=== PATIENT | female | born 1960 | race American Indian/Alaskan Native ===

== ENCOUNTER 2018-03-04 10:33 | Day surgery (SDC) | payer OTHER ==
[2018-03-04] MEDS ORDERED: NACL 0.9% 1000 ML 1,000 ML IV SCH (11:00)
[2018-03-04] MEDS ORDERED: WATER FOR IRRIG STERILE IR ONE (11:25)
[2018-03-04] MEDS ORDERED: XYLOCAINE MPF 2% ONE (11:30)
[2018-03-04] MEDS ORDERED: DIPRIVAN 10 MG/ML IV ONE ×2 (13:02)
--- NOTE | 2018-03-04 13:02 | Anesthesia Day of Surgery ---
Anesthesia Day of Surgery - Day of Surgery Patient Examined: Yes Patient H&P Reviewed: Yes Patient is NPO: Yes
--- NOTE | 2018-03-04 13:02 | Anesthesia Consultation ---
Anesthesia Consult and Med Hx Date of service: 03/04/18 - Airway Anesthetic Teeth Evaluation: Poor, Chipped ROM Head & Neck: Adequate Mental/Hyoid Distance: Adequate Mallampati Class: Class III Intubation Access Assessment: Possibly Difficult - Pulmonary Exam CTA: Yes - Cardiac Exam Cardiac Exam: RRR - Pre-Operative Health Status ASA Pre-Surgery Classification: ASA3 Proposed Anesthetic Plan: MAC - Cardiovascular System Hx Hypertension: Yes - Other Systems Hx Obesity: Yes (MORBID)
--- NOTE | 2018-03-04 13:33 | Operative Report ---
Operative Report Operative Report: Date of procedure: 03/04/2018 Procedure: Colonoscopy with Multiple Polyp ablations and Hot Biopsy Polypectomy. Attending physician: Steve Yang MD Research Clerk: Steve Yang MD Indication: Patient is a 58-year-old female who presents for screening colonoscopy. This colonoscopy serves to evaluate patient so that treatment may be directed based on the findings. Consent: Informed consent was obtained after advising the patient and family regarding nature of this procedure, its indications, potential benefits as well as possible complications including but not limited to bleeding perforation and adverse reaction to medication, infection as well as other cardiopulmonary complications. An informed written and verbal consent was then obtained after due opportunity was provided for questions and answers. Monitoring: Patient was monitored continuously with pulse oximetry and electrocardiographic recordings as well as blood pressure recordings. Vital signs remained stable throughout this procedure with no untoward events. Preoperative assessment: Patient was assessed immediately prior to this procedure for capacity to tolerate monitored anesthesia care and moderate sedation as well as general anesthesia. Patient's ASA classification is 2, Mallampati class is 2, Hyomental distance is 3. Instrument: Volusionn video colonoscope Medications: Propofol given intravenously in divided doses. For details please refer to anesthesia records. Description of procedure: Patient was placed in the left lateral decubitus position after achieving sedation, a digital rectal examination was performed following which the colonoscope was introduced into the anal verge and advanced to the cecum which was identified by the cecal valve, the appendiceal orifice, as well as by the cecal strap and direct transillumination. The colonoscope was subsequently withdrawn with careful inspection of all mucosal surfaces. Patient tolerated this procedure well and was subsequently taken to the recovery room. The following findings were noted. Findings: Patient had multiple diminutive flat polyps in the rectum measuring about 3-4 mm. About 7 of these polyps were ablated. There was also a few diminutive sessile polyp in the sigmoid colon which measured 5-6 mm. The polyps was ablated removed by hot biopsy polypectomy. There were scattered diverticula in the sigmoid colon and also in the descending colon. Patient had substantial retained stool in various sections of the colon. The rest of the colon to the cecum was normal. On the retroflex view at the anal verge, patient had internal hemorrhoids. Impression: Multiple diminutive rectal polyps status post polyp ablation. Sigmoid colon polyp status post hot biopsy polypectomy. Retained stool. Diverticula disease of the colon. Internal hemorrhoids. Plan: Follow pathology report. High-fiber diet. Repeat colonoscopy in 1 year due to the relatively poor colonoscopic preparation and presence of multiple polyps.
--- NOTE | 2018-03-04 13:34 | Discharge Summary ---
Short Stay Discharge Plan Activity: advance as tolerated Weight Bearing Status: Weight Bear as Tolerated Diet: regular
[2018-03-04 14:13] VITALS: BP 146/82
== END 2018-03-04 14:14 | disposition home or self-care (01) ==
LOC: GIO 10:33
PROVIDERS: ATTEND Internal Medicine Gastroenterology
DX: Z09 Encounter for follow-up examination after completed treatment for conditions other than malignant neoplasm (principal); K63.5 Polyp of colon; K59.00 Constipation, unspecified; K57.30 Diverticulosis of large intestine without perforation or abscess without bleeding; K64.8 Other hemorrhoids; I10 Essential (primary) hypertension; E66.01 Morbid (severe) obesity due to excess calories; Z86.010 Personal history of colon polyps; Z68.42 Body mass index [BMI] 45.0-49.9, adult; Z90.710 Acquired absence of both cervix and uterus; Z98.890 Other specified postprocedural states
CPT/HCPCS: 45384; 45388; 88305; J2704; J7030

== ENCOUNTER 2020-09-21 09:15 | Outpatient (CLI) | payer OTHER ==
--- NOTE | 2020-09-21 10:22 | Mammography Report ---
DIGITAL DIAGNOSTIC MAMMOGRAM WITH CAD CONVENTIONAL, 09/21/2020 CLINICAL INFORMATION / INDICATION: Status post biopsy of right breast mass. TECHNIQUE: Digital right mammographic imaging was performed. This examination was interpreted with the benefit of Computer-aided Detection analysis. COMPARISON: 08/21/2020, 08/02/2020 FINDINGS: Breast Density: There are scattered areas of fibroglandular density. The previously seen upper outer posterior depth right breast mass is unchanged with expected interval postbiopsy changes and concordant clip placement. Generalized benign right breast calcifications are unchanged. IMPRESSION: Expected postbiopsy appearance of the right breast. Please correlate with the pathology r eport. Follow up recommendation: Clinical exam Post biopsy imaging. A "normal" or negative report should not discourage follow up or biopsy of a clinically significant f inding. A written summary of these findings will be mailed to the patient. The patient will be entered into a mammography reporting system which will generate a reminder letter for the patient's next appointmen t at the appropriate interval. According to the [employer], yearly mammograms are recommended starting at age 40 and continuing as long as a woman is in good health. Breast MRI is recommended for women with an tay roximately 20-25% or greater lifetime risk of breast cancer, including women with a strong family his tory of breast or ovarian cancer and women who have been treated for Hodgkin's disease. Signer Name: Oli Tyler MD Signed: 09/21/2020 10:18 AM Workstation Name: [id number]
== END 2020-09-21 09:16 | disposition home or self-care (01) ==
LOC: SPVWC 09:15
PROVIDERS: ATTEND Surgery
DX: R92.1 Mammographic calcification found on diagnostic imaging of breast (principal); N63.10 Unspecified lump in the right breast, unspecified quadrant

== ENCOUNTER 2020-09-21 14:20 | Outpatient (CLI) | payer OTHER | END 2020-09-21 14:21 | disposition home or self-care (01) | LOC: LABHHL 14:20 | PROVIDERS: ATTEND Surgery | DX: N63.41 Unspecified lump in right breast, subareolar (principal) | CPT/HCPCS: 88305; 88341; 88342 ==

== ENCOUNTER 2020-10-31 12:47 | Outpatient (CLI) | payer OTHER ==
--- NOTE | 2020-10-31 16:04 | Magnetic Resonance Report ---
BILATERAL BREAST MRI WITH AND WITHOUT CONTRAST CLINICAL INFORMATION/INDICATION: Recent diagnosis of right breast carcinoma. TECHNICAL: Coronal STIR, axial T1 and T2-weighted fat sat images were obtained precontrast. Gadoliniu m-based contrast was injected intravenously and serial axial T1 weighted images with fat saturation w ere obtained. 3-D MIP projections, kinetic analysis and subtraction imaging was utilized to evaluate. A dedicated 8-channel breast coil was used for image acquisition. COMPARISON: Prior mammograms including 08/02/2020 and 09/21/2020 FINDINGS: Right breast: There is a 2.9 x 2.6 cm irregular partially enhancing mass in the upper outer quadrant of the right breast. This mass contains a biopsy clip confirming that this is the biopsy-proven neopl asm. This mass is approximately 10.5 cm from the nipple and approximately 4.3 cm from the chest wall, and 8 mm from the nearest skin surface laterally. Additionally, there are multiple small enhancing m asses anterior to the biopsy-proven cancer extending to within 2.5 cm from the nipple. The largest ma ss is approximately 8 mm with multiple 5 mm enhancing masses seen scattered throughout the same segme nt of breast that contains the biopsy-proven carcinoma. The entire area of suspected malignant involv ement is 12 cm in length, anterior to posterior. No abnormalities are seen in the medial half of the breast. Left breast: The left breast is unremarkable. No abnormal enhancement or suspicious findings are iden tified within the left breast. Additional findings: No abnormal lymph nodes are seen in either axilla or internal mammary chain. Loc alizing images demonstrate no obvious abnormality within the visualized portions of the liver or thor acic spine. IMPRESSION: 1. Biopsy-proven neoplasm is identified in the right breast at approximately 10:00. Additionally, the re are several enhancing masses seen throughout the same segment of breast as the carcinoma, extendin g anteriorly to within 2.5 cm of the nipple. The entire length of malignant involvement is suspected to be approximately 12 cm. 2. Normal MRI of the left breast. Follow up recommendation: Continued surgical consultation. BI-RADS Category 6: Known Biopsy-Proven Malignancy. Signer Name: Alma Rosa Lloyd MD Signed: 10/31/2020 3:59 PM Workstation Name: [id number]
== END 2020-10-31 12:48 | disposition home or self-care (01) ==
LOC: SPVIMAG 12:47
PROVIDERS: ATTEND Surgery
DX: C50.411 Malignant neoplasm of upper-outer quadrant of right female breast (principal)
CPT/HCPCS: A9577; C8908; 77049

== ENCOUNTER 2020-11-08 11:45 | Outpatient (CLI) | payer OTHER ==
--- NOTE | 2020-11-08 15:01 | PET Report ---
PET/CT HISTORY: C50.411. Initial staging of right breast cancer TECHNIQUE: The patient's fasting blood glucose was 144. The patient weighed 301 lbs. The patient w as injected with 13.5 mCi of FDG in the right antecubital fossa at 1247 hours and imaging was started at 1333 hours. The patient was imaged from the skull base to the thighs. All CT scans at this [facility] are performed using CT dose reduction for ALARA by means of automated exposure control. Images we re reviewed on a workstation. COMPARISON: None FINDINGS: IMAGED BRAIN: [Physiologic FDG uptake. NECK: Physiologic FDG uptake. CHEST WALL: An asymmetric density in the right lateral breast measures 3.5 x 2.4 cm and demonstrates a max SUV of 7.5.. MEDIASTINUM: Physiologic FDG uptake. LUNGS: Physiologic FDG uptake. No suspicious pulmonary nodule. HEPATOBILIARY: Physiologic FDG uptake. Mild hepatic steatosis is noted. No liver lesion is detected. PANCREAS: Physiologic FDG uptake. SPLEEN: Physiologic FDG uptake. KIDNEYS/BLADDER: Physiologic FDG uptake. ADRENAL GLANDS: Physiologic FDG uptake. GI/MESENTERY: Physiologic FDG uptake. PELVIC VISCERA: Physiologic FDG uptake. LYMPH NODES: There is a solitary mildly enlarged 1.3 cm right axillary lymph node which demonstrates a max SUV of 3.0.. OSSEOUS STRUCTURES: Physiologic FDG uptake. No suspicious bony lesions are detected. ADDITIONAL FINDINGS: None. IMPRESSION: Hypermetabolic right breast mass consistent with primary breast cancer. There is also a suspicious m ildly enlarged right axillary lymph node which also demonstrates mild hypermetabolic activity. Signer Name: Jeison Lombardi Jr, MD Signed: 11/08/2020 2:57 PM Workstation Name: [id number]
== END 2020-11-08 11:46 | disposition home or self-care (01) ==
LOC: PET 11:45
PROVIDERS: ATTEND Surgery
DX: C50.411 Malignant neoplasm of upper-outer quadrant of right female breast (principal); K76.0 Fatty (change of) liver, not elsewhere classified; R59.0 Localized enlarged lymph nodes
CPT/HCPCS: 78815; 82962; A9552

== ENCOUNTER 2020-11-27 12:41 | Outpatient (CLI) | payer OTHER ==
--- NOTE | 2020-11-27 13:49 | Ultrasound Report ---
ULTRASOUND BREAST RIGHT COMPLETE, 11/27/2020 CLINICAL INFORMATION / INDICATION: MALIGNANT NEOPLASM OF UPPER OUTER QUAD OF RT BREAST. TECHNIQUE: Complete sonographic evaluation of all 4 quadrants and retroareolar region was performed. COMPARISON: Right breast ultrasound 08/21/20. FINDINGS: There is a 2.9 cm irregular hypoechoic solid mass at the 9:30 position 12 cm from the nipple at the s ite of the patient's known biopsy-proven malignancy. A biopsy clip is present within the center of th e lesion. The mass measured approximately 2.2 cm previously. There is a 7.6 mm ovoid solid or complex cystic nodule at the 7:00 position 4 cm from the nipple. The re is an 8.1 mm irregular solid nodule at the 8:30 position 7 cm from the nipple which demonstrates i nternal vascularity on Doppler exam. There is a 6.2 mm solid nodule at the 9:00 position 7 cm from th e nipple, and a 5.9 mm solid nodule at the 9:30 position 5 cm from the nipple. Vague distortion and p osterior shadowing are present at the 12:00 position 4 cm from the nipple. There is a small lymph nod e in the right axilla with a thickened cortex (measuring 4.5 mm). IMPRESSION: Multifocal malignancy in the right breast. Follow up recommendation: Surgical consult BI-RADS Category 6: Known Biopsy-Proven Malignancy. A normal or "negative" report should not preclude biopsy or follow-up of a clinically suspicious find ing. Signer Name: Alcides Chase MD Signed: 11/27/2020 1:45 PM Workstation Name: [id number]
== END 2020-11-27 12:42 | disposition home or self-care (01) ==
LOC: SPVWC 12:41
PROVIDERS: ATTEND Surgery
DX: C50.411 Malignant neoplasm of upper-outer quadrant of right female breast (principal); N63.11 Unspecified lump in the right breast, upper outer quadrant; N63.13 Unspecified lump in the right breast, lower outer quadrant; R92.8 Other abnormal and inconclusive findings on diagnostic imaging of breast

== ENCOUNTER 2021-04-09 10:11 | Outpatient (CLI) | payer OTHER ==
--- NOTE | 2021-04-09 12:27 | Magnetic Resonance Report ---
Bilateral breast MR without and with contrast. History: Known right breast cancer, assess response to treatment. Comparison: 11/27/2020, 10/31/2020, 10/01/2020. Technique: Multiplanar multisequence MR images of the breast were obtained before and after the intra venous administration of 19 mL of Clariscan contrast agent. Post processing analysis and review was p erformed on a separate computer workstation. Findings: Breast composition is heterogeneously dense. There is minimal parenchymal enhancement within both reny asts. RIGHT BREAST: Patient has known biopsy-proven malignancy within the right upper outer breast with pre viously noted evidence of multifocal distribution. Compared to the prior MRI, there has been excellen t response to treatment. There is no residual abnormal mass or non-masslike enhancement within the ri ght breast. A biopsy marker within the right upper outer breast is noted at the site of prior biopsy. LEFT BREAST: Located within the left lower inner breast is a 1.3 x 0.6 x 0.6 cm complex cystic and so lid lesion. This is located 6 cm from the nipple and can best be seen on series 6, image 497. A port is noted within the posterior upper inner left breast. No abnormal axillary or internal mammary lymph nodes. Of note, patient has known biopsy-proven malign mary within a previously biopsied right axillary lymph node. Impression: Excellent response to treatment with no residual abnormal enhancement within the right breast at the site of previously identified multifocal breast malignancy within the right upper outer breast. Located within the left lower inner breast is a 1.3 cm complex cystic and solid lesion. A targeted ul trasound is recommended (focused at the 8:00 position, 6 cm from the nipple) with subsequent ultrasou nd-guided biopsy if a sonographic correlate is identified. If no sonographic correlate is identified, an MRI guided biopsy would be recommended. BIRADS 0: Incomplete--Needs Additional Imaging Evaluation. Signer Name: Keven Tinsley MD Signed: 04/09/2021 12:23 PM Workstation Name: [id number]
--- NOTE | 2021-04-09 13:34 | Ultrasound Report ---
RIGHT DIAGNOSTIC MAMMOGRAM AND BILATERAL TARGETED BREAST ULTRASOUND INDICATION: Known right breast malignancy, assess treatment response. Abnormality noted in the left b reast on recent MRI. COMPARISON: MRI performed earlier the same day, 11/27/2020, 09/21/2020. FINDINGS: Right breast CC and MLO projections were obtained. There are scattered fibroglandular densi ties. A biopsy marker in the right lateral posterior breast is noted. No persistent residual mass is identified. No new suspicious findings are seen. A targeted ultrasound focused in the right lateral breast shows a biopsy marker at the 9:30 position, 12 cm from the nipple, at site of known biopsy-proven malignancy. Comparison ultrasound showed multi ple findings concerning for the presence of multifocal malignancy, however these findings are not diego ntified on the current exam. No abnormal right axillary lymph nodes. A targeted ultrasound of the left medial breast shows a 7 x 6 x 8 mm solid microlobulated structure a t the 9:00 position, 6 cm from the nipple. This would correspond to a focal area of enhancement which was seen on the recent breast MRI. IMPRESSION: Excellent response to treatment with resolution of previously noted masses within the right breast at sites of prior suspected multifocal malignancy. No residual suspicious sonographic findings within t he right breast. A biopsy marker at the 9:30 position, 12 cm from the nipple, is again noted at site of prior biopsy. There is an 8 mm mass in the left breast at the 9:00 position, 6 cm from the nipple. This would corre spond with the focal area of enhancement seen on recent breast MRI. . If clinically indicated, this w ould be amenable to ultrasound-guided core biopsy. Patient states that she plans to undergo bilatera l mastectomies and biopsy of this would likely not change clinical management. These findings and recommendations were discussed with the patient the conclusion of the exam by Dr. Tinsley. BI-RADS Category 6: Known Biopsy-Proven Malignancy. Signer Name: Keven Tinsley MD Signed: 04/09/2021 1:30 PM Workstation Name: [id number]
== END 2021-04-09 10:12 | disposition home or self-care (01) ==
LOC: SPVIMAG 10:11
PROVIDERS: ATTEND Surgery
DX: C50.411 Malignant neoplasm of upper-outer quadrant of right female breast (principal); N60.01 Solitary cyst of right breast; N64.89 Other specified disorders of breast
CPT/HCPCS: 76642; 77065; A9575; C8908; 77049

== ENCOUNTER 2021-06-18 12:05 | Outpatient (CLI) | payer OTHER ==
--- NOTE | 2021-06-18 15:55 | Ultrasound Report ---
ULTRASOUND-GUIDED LEFT BREAST BIOPSY INDICATION: Prior history of right breast cancer, small left breast enhancing lesion noted on recent MR with ultrasound correlate COMPARISON: Bilateral breast ultrasound 04/09/2021 CONSENT: Procedure was discussed at length in advance with the patient. Possible risks and benefits w ere discussed including the possibility of bleeding. Postbiopsy care was discussed. Opportunity for q uestions was provided. Patient is on Eqiquis anticoagulant therapy which, in discussion with Dr. Pola rosen, was considered important to not discontinue due to recent history of PTE and plan left mastect fara next week. Patient reports no pertinent allergies. PROCEDURE: Timeout was performed. The small hypoechoic area in the 9:00 position, 6 cm from the nippl e, was targeted sonographically. Using aseptic technique and under local anesthesia, with real-time s onographic guidance, the area of interest was biopsied. Multiple specimens were obtained with a 14-ga uge Bard biopsy device and sent to pathology for analysis. A metallic clip was placed at the end of t he procedure. Site was secured and the patient was sent for post biopsy mammogram. Patient tolerated the procedure well and left the department in good condition with no evidence of hemorrhage. IMPRESSION: Successful ultrasound-guided left breast biopsy Signer Name: Scott Demarco MD Signed: 06/18/2021 3:50 PM Workstation Name: [id number]
--- NOTE | 2021-06-18 15:56 | Mammography Report ---
DIGITAL DIAGNOSTIC MAMMOGRAM WITH CAD CONVENTIONAL, 06/18/2021 CLINICAL INFORMATION / INDICATION: Post ultrasound-guided biopsy TECHNIQUE: Digital left mammographic imaging was performed. This examination was interpreted with the benefit of Computer-aided Detection analysis. COMPARISON: Bilateral breast ultrasound 04/09/2021 FINDINGS: Breast Density: The breasts are heterogeneously dense, which may obscure small masses. Biopsy clip is situated in the far medial left breast at the expected site of the sonographic lesion. IMPRESSION: Satisfactory clip placement Follow up recommendation: Per biopsy results Post biopsy imaging. A "normal" or negative report should not discourage follow up or biopsy of a clinically significant f inding. A written summary of these findings will be mailed to the patient. The patient will be entered into a mammography reporting system which will generate a reminder letter for the patient's next appointmen t at the appropriate interval. According to the [employer], yearly mammograms are recommended starting at age 40 and continuing as long as a woman is in good health. Breast MRI is recommended for women with an tay roximately 20-25% or greater lifetime risk of breast cancer, including women with a strong family his tory of breast or ovarian cancer and women who have been treated for Hodgkin's disease. Signer Name: Scott Demarco MD Signed: 06/18/2021 3:52 PM Workstation Name: [id number]
== END 2021-06-18 12:06 | disposition home or self-care (01) ==
LOC: SPVWC 12:05
PROVIDERS: ATTEND Surgery
DX: C50.412 Malignant neoplasm of upper-outer quadrant of left female breast (principal); R92.2 Inconclusive mammogram; R92.8 Other abnormal and inconclusive findings on diagnostic imaging of breast; I10 Essential (primary) hypertension; E66.9 Obesity, unspecified; Z79.899 Other long term (current) drug therapy; Z98.890 Other specified postprocedural states
CPT/HCPCS: 88305

== ENCOUNTER 2021-06-24 08:09 | Observation (INO) | payer OTHER ==
--- NOTE | 2021-06-12 15:30 | Anesthesia Consultation ---
Anesthesia Consult and Med Hx Date of service: 06/24/21 - Airway Anesthetic Teeth Evaluation: Good ROM Head & Neck: Adequate Mental/Hyoid Distance: Adequate Mallampati Class: Class II Intubation Access Assessment: Good - Pre-Operative Health Status ASA Pre-Surgery Classification: ASA3 Proposed Anesthetic Plan: General Nerve Block: ES/PECS - Pulmonary Hx Smoking: No Hx Respiratory Symptoms: Yes SOB: Yes (Fatigues easily; on chemo) Hx Sleep Apnea: No (STEVE PRE SCREEN HIGH RISK) - Cardiovascular System Hx Hypertension: Yes (Going to get cardiac w/u and clearance) Hx Heart Attack/AMI: No - Central Nervous System Hx Back Pain: Yes (Uses walker) Hx Psychiatric Problems: No - Endocrine Hx Renal Disease: Yes (CRI) Hx Non-Insulin Dependent Diabetes: Yes (6.1) Hx Thyroid Disease: Yes (Had goiter removed 1989; no meds) - Hematic Hx Anemia: Yes Hx Sickle Cell Disease: No - Other Systems Hx Alcohol Use: No Hx Substance Use: No Hx Cancer: Yes Hx Obesity: Yes (MORBID) - Additional Comments Anesthesia Medical History Comments: Bilateral DVTs-->PE. Will get [place] filter [id number]. Swollen legs/ankles
[~2021-06-24 08:09] MED LIST: ACETAMINOPHEN 325 MG TAB PO NR; CELECOXIB 200 MG CAP PO NR; LACTATED RINGERS 1,000 ML IV SCH; MAGNESIUM OXIDE 400 MG TAB PO NR; MIDAZOLAM 2 MG/2 ML INJ IV NR; ceFAZolin/STERILE WATER 2 GM/20 ML SYRINGE IV NR; fentaNYL 100 MCG/2 ML INJ IV NR
[2021-06-24] MEDS ORDERED: BACTERIOSTATIC SODIUM CHLORIDE 0.9% 30 ML VIAL INFILTRATI ONE (08:52)
[2021-06-24] MEDS ORDERED: BUPIVACAINE/PF (0.25%) 2.5 MG/ML 30 ML VIAL INFILTRATI ONE (09:25)
[2021-06-24 09:43] LABS: Hematocrit 26.7 % (30.3-42.9); Hemoglobin 9.1 gm/dl (10.1-14.3); Mean Corpuscular HGB Conc 34 % (30-34); Mean Corpuscular Volume 98 fl (79-97); Platelet Count 203 K/mm3 (140-440); Red Blood Count 2.73 M/mm3 (3.65-5.03); Red Cell Distribution Width 16.6 % (13.2-15.2)
[2021-06-24] MEDS ORDERED: HYDROmorphone 1 MG/1 ML INJ ONE ×2 (10:08→11:54)
[2021-06-24] MEDS ORDERED: LIDOCAINE MPF (2%) 20 MG/1 ML VIAL 5 ML ONE (10:09)
[2021-06-24] MEDS ORDERED: propofoL 200 MG/20 ML VIAL IV ONE (10:09)
[2021-06-24] MEDS ORDERED: ONDANSETRON 4 MG/2 ML INJ ONE ×2 (11:02→14:21)
[2021-06-24] MEDS ORDERED: METHYLENE BLUE 50 MG/10 ML AMP IV ONE (11:19)
[2021-06-24] MEDS ORDERED: WATER FOR IRRIG STERILE 1,500 ML BOTTLE IR ONE (11:19)
[2021-06-24] MEDS ORDERED: SODIUM CHLORIDE 0.9% P/F 10 ML VIAL IV ONE (11:20)
[2021-06-24] MEDS ORDERED: KETOROLAC 30 MG/1 ML INJ ONE (14:21)
--- NOTE | 2021-06-24 14:49 | Short Stay Summary ---
Short Stay Documentation Date of service: 06/24/21 - History H&P: obtained from office - Allergies and Medications Current Medications: Allergies No Known Allergies Allergy (Verified 06/11/21 10:32) Home Medications Medication Instructions Recorded Confirmed Last Taken Type amLODIPine [Norvasc] 10 mg PO DAILY 03/03/18 06/11/21 06/23/21 History hydroCHLOROthiazide [HCTZ] 25 mg PO QDAY 03/03/18 06/11/21 06/23/21 History Losartan [Cozaar] 50 mg PO QDAY 10/12/20 06/11/21 06/23/21 History Metformin HCl [metFORMIN] 1,000 mg PO BID 10/12/20 06/11/21 06/23/21 History Apixaban [Eliquis] 5 mg PO DAILY 06/11/21 06/24/21 06/21/21 History Active Medications Acetaminophen (Acetaminophen 325 Mg Tab) 650 mg PO ONCE NR Stop: 06/24/21 16:00 Last Admin: 06/24/21 10:02 Dose: 650 mg Documented by: Acetaminophen (Acetaminophen 325 Mg Tab) 650 mg PO Q6H PRN PRN Reason: Pain MILD(1-3)/Fever >100.5/MULLIGAN Cefazolin Sodium (Cefazolin/Sterile Water 2 Gm/20 Ml Syringe) 2 gm IV PREOP NR Stop: 06/24/21 23:59 Celecoxib (Celecoxib 200 Mg Cap) 200 mg PO PREOP NR Stop: 06/24/21 20:00 Last Admin: 06/24/21 10:02 Dose: 200 mg Documented by: Diphenhydramine HCl (Diphenhydramine 25 Mg Cap) 25 mg PO Q8H PRN PRN Reason: Itching Docusate Sodium (Docusate Sodium 100 Mg Cap) 100 mg PO BID SHEREEN Fentanyl (Fentanyl 100 Mcg/2 Ml Inj) 100 mcg IV ONCE NR Stop: 06/24/21 20:00 Last Admin: 06/24/21 10:13 Dose: 100 mcg Documented by: Lactated Ringer's (Lactated Ringers) 1,000 mls @ 100 mls/hr IV DIRECT SHEREEN Last Admin: 06/24/21 10:00 Dose: 100 mls/hr Documented by: Lactated Ringer's (Lactated Ringers) 1,000 mls @ 125 mls/hr IV DIRECT SHEREEN Magnesium Oxide (Magnesium Oxide 400 Mg Tab) 400 mg PO ONCE NR Stop: 06/24/21 20:00 Last Admin: 06/24/21 10:02 Dose: 400 mg Documented by: Metoclopramide HCl (Metoclopramide 10 Mg Tab) 10 mg PO Q6H PRN PRN Reason: Nausea And Vomiting Midazolam HCl (Midazolam 2 Mg/2 Ml Inj) 2 mg IV PREOP NR Stop: 06/24/21 23:59 Last Admin: 06/24/21 10:13 Dose: 2 mg Documented by: Morphine Sulfate (Morphine 2 Mg/1 Ml Inj) 2 mg IV Q4H PRN PRN Reason: Pain, Moderate (4-6) Ondansetron HCl (Ondansetron 4 Mg/2 Ml Inj) 4 mg IV Q8H PRN PRN Reason: N/V unrelieved by Reglan Oxycodone/Acetaminophen (Oxycodone /Acetaminophen 5-325mg Tab) 1 tab PO Q6H PRN PRN Reason: Pain, Moderate (4-6) Sodium Chloride (Sodium Chloride 0.9% 10 Ml Flush Syringe) 10 ml IV PRN PRN PRN Reason: LINE FLUSH - Brief post op/procedure progress note Date of procedure: 06/24/21 Pre-op diagnosis: Right breast cancer upper outer quadrant Post-op diagnosis: same Procedure: Right total mastectomy with SLNB Anesthesia: GETA Findings: x2 clips present; 2 SLNs and negative for malignancy Surgeon: KIARRA FONSECA Estimated blood loss: 50-100ml Pathology: list Specimen disposition: to lab Condition: stable - Disposition Condition at discharge: Good Disposition: 02 [facility] TERM [facility] Short Stay Discharge Plan Activity: other (no heavy lifting) Diet: diabetic Wound: keep clean and dry (wear breast binder) Follow up with: KIARRA FONSECA MD [Staff Physician] - 7 Days
[2021-06-24] MEDS ORDERED: METHYLENE BLUE 50 MG/10 ML AMP ONE (14:51)
[2021-06-24] MEDS ORDERED: SODIUM CHLORIDE P/F VIAL 10 ML 10 ML ONE (14:51)
--- NOTE | 2021-06-24 14:57 | Operative Report ---
Operative Report Operative Report: Operative Report: Date of Service: June 24, 2021 Preoperative diagnosis: Right breast cancer of the upper outer quadrant Postoperative diagnosis: Same Procedure: Right total mastectomy with sentinel lymph node biopsy Surgeon: Angelita Ruiz M.D. Application Support Developer: Enoc Moon M.D. Anesthesia: Gen. Findings: Right breast clips x2 present within right total mastectomy; x2 sentinel lymph nodes identified and negative for malignancy on frozen section of pathology Complications: None Drains: One 19 Syrian ALEX drains bilaterally Estimated blood loss: Less than 100 cc Disposition: PACU in good condition Indications for operative procedure: This is a 61-year-old lady with m ulticentric stage IIIB right breast cancer of the upper outer quadrant, cT2/3N1M0 triple negative. She completed neoadjuvant chemotherapy. Recommendations were to proceed with a right total mastectomy given extent of disease seen on breast MRI and patient wanted to proceed with a right mastectomy. She was recently diagnosed with a pulmonary embolism and she was started on anticoagulation. Recommendations were to wait at least 6 weeks prior to proceeding with surgery to ensure patient was appropriately anticoagulated. Patient was seen and evaluated by cardiology prior to surgery. Patient also had IVC filter placed on and was bridged to Lovenox prior to surgery. She understands the role of possible adjuvant XRT pending final pathology. She wished to proceed with the above procedure. Procedure in detail: The patient was taken to the operating room and was placed supine. Gen. anesthesia was administered. The right nipple was injected with radioisotope and 1 cc of methylene blue. Right breast/chest and axilla was prepped and draped in the normal sterile operative fashion. Timeout was performed. Typical mastectomy incision markings were made with right mastectomy incision encompassing known cancer around the 9:00 position 12 cm FN. Ultrasound was used as well for incision markings. Attention was taken towards the right breast. A gamma probe was inserted into the axilla to identify the sentinel lymph node location with uptake noted. A skin incision was made with a 10 blade knife and dissection taken down to the subcutaneous tissues. First began raising of the superior flap to the level of the clavicle superiorly and posteriorly to the pectoralis muscle. Followed by raising of the medial flap to the level of the sternum and posteriorly to the pectoralis muscle. Followed by raising of the lateral flap to the level of the latissimus dorsi muscle and taken down posteriorly. The gamma probe was inserted into the axilla, the axillary fascia was opened and 2 SLNS were identified that were dissected free and sent to pathology. All SLNs sent to pathology with findings negative for malignancy on frozen section and first SLN with biopsy site changes present and negative for malignancy. Then proceeded with raising of the inferior flap to the level of the inframammary fold taken posterior to the pectoralis muscle. The mastectomy/breast was removed from the pectoralis muscle without incident. The specimen was appropriately marked and sent to radiology with findings of x2 breast clips present and sent to pathology. Hemostasis was obtained. The chest wall cavity was irrigated. A 19 Syrian ALEX drain was placed. The subcutaneous tissues were approximated and close using interrupted 3-0 Vicryl and the skin closed using 4-0 running Monocryl followed by dermabond. She tolerated surgery very well and was awaken from anesthesia without any complications and transported to PACU in good condition.
[2021-06-24] MEDS ORDERED: LACTATED RINGERS 1,000 ML IV SCH (15:30)
[2021-06-24] MEDS ORDERED: ONDANSETRON 4 MG/2 ML INJ IV PRN (15:30)
[2021-06-24] MEDS ORDERED: DEXTROSE 50% IN WATER (25GM) 50 ML SYRINGE IV PRN (15:30)
[2021-06-24] MEDS ORDERED: ACETAMINOPHEN 325 MG TAB PO PRN (15:30)
[2021-06-24] MEDS ORDERED: MORPHINE 2 MG/1 ML INJ IV PRN (15:30)
[2021-06-24] MEDS ORDERED: oxyCODONE /ACETAMINOPHEN 5-325MG TAB PO PRN (15:30)
[2021-06-24] MEDS ORDERED: diphenhydrAMINE 25 MG CAP PO PRN (15:30)
[2021-06-24] MEDS ORDERED: METOCLOPRAMIDE 10 MG TAB PO PRN (15:30)
--- NOTE | 2021-06-24 16:46 | Post Anesthesia Evaluation ---
- Post Anesthesia Evaluation Patient Participated: Yes Airway Patent: Yes Stable Respiratory Function: Yes Nausea/Vomiting: No Temp > 96.8F: Yes Pain Manageable: Yes Adequeate Hydration: Yes Anesthesia Complications: No Block Receding Appropriately: Not Applicable (Attempted ES & PECS blocks; unable to visualize with US flat probe; don't have curved probe) Patient on Ventilator: No
[2021-06-24] MEDS: INSULIN REGULAR, HUMAN 100 UNITS/1 ML SUB-Q SCH ×2 (18:00→21:44)
[2021-06-24] MEDS ORDERED: DOCUSATE SODIUM 100 MG CAP PO SCH (22:00)
[2021-06-25] MEDS ORDERED: oxyCODONE /ACETAMINOPHEN 5-325MG TAB PO PRN (02:01)
[2021-06-25] MEDS: INSULIN REGULAR, HUMAN 100 UNITS/1 ML SUB-Q SCH ×2 (03:36→09:27)
[2021-06-25 12:15] VITALS: BP 148/61
--- NOTE | 2021-06-25 14:40 | Mammography Report ---
Left breast surgical specimen radiograph. INDICATION: Left breast biopsy-proven intraductal papilloma. COMPARISON: 06/18/2021. FINDINGS: Two radiographs are submitted depicting a reported left surgical breast specimen. The U-sha ped biopsy marker is NOT identified within the specimen. This radiograph was made available for dicta tion on 06/25/2021 and it was not possible to communicate this to the surgeon intraoperatively. IMPRESSION: Left breast surgical specimen does not contain the U-shaped biopsy marker which laughlin the site of a b iopsy proven intraductal papilloma. Recommend left breast diagnostic mammogram to assess for the pre sence of any residual biopsy marker. These findings and recommendations were discussed with Dr. Howard at 13:24 on 06/25/2021. Signer Name: Keven Tinsley MD Signed: 06/25/2021 2:35 PM Workstation Name: [id number]
== END 2021-06-25 12:15 | disposition home or self-care (01) ==
LOC: OR 08:09 → OB 14:38
PROVIDERS: ADMIT Surgery; ATTEND Surgery
DX: C50.411 Malignant neoplasm of upper-outer quadrant of right female breast (principal); Z20.822 Contact with and (suspected) exposure to COVID-19; Z79.899 Other long term (current) drug therapy; Z79.84 Long term (current) use of oral hypoglycemic drugs
CPT/HCPCS: 19303; 36415; 38525; 38792; 76098; 78800; 82962; 84132; 85027; 88305; 88307; 88309; 88331; 88333; 96372; A9541; G0378; J0690; J1170; J1885; J2250; J2704; J3010; J7120; Q9968; U0003; 88341; 88342; J1815; J2405